=== PATIENT | female | born 1985 | race Caucasian/White ===

== ENCOUNTER 2016-08-12 15:36 | Emergency (ER) | payer BC ==
--- NOTE | 2016-08-29 08:17 | ER ---
ADMIT: 08/12/2016 RM/LOC: ER [facility] MR#: [id number] [place], [place] [id number] [facility] [address] [place] [address] Emergency Room Report SEX: F AGE: 31 : 1985 DATE: 08/12/2016 ADDENDUM: A 31-year-old white female coming with right upper quadrant pain. She went to [facility] and 2 hours later, she is starting to have pain. This has been happening several times. Clinically, she has biliary colic. She needs an ultrasound, but she just ate about 2 hours ago. We set her up for an outpatient ultrasound. She is supposed to be just sips of 7-Up or Gatorade here for a couple of hours and then she can go to a no-fat diet only. I gave her 5 of morphine IM. We have set the ultrasound up for tomorrow. She is also to see Dr. Escobedo after tomorrow. CONDITION ON DISCHARGE: Improved. Jarrett Sanchez MD/ maricarmen JOB #: [id number] CC: Jarrett Sanchez MD, Attending Physician Lalo Escobedo MD, Family Physician
== END 2016-08-12 16:40 | disposition home or self-care (01) ==
LOC: ER 15:36
DX: R10.11 Right upper quadrant pain (principal); F17.200 Nicotine dependence, unspecified, uncomplicated

== ENCOUNTER → 2016-08-13 | Outpatient (CLI) | payer BC | END | disposition home or self-care (01) | LOC: RAD.S 10:00 | DX: R10.9 Unspecified abdominal pain (principal) ==

== ENCOUNTER → 2016-08-18 | Outpatient (CLI) | payer BC | END | disposition home or self-care (01) | LOC: RAD.S 07:14 | DX: R10.11 Right upper quadrant pain (principal); R11.0 Nausea; R12 Heartburn ==